=== PATIENT | male | born 2000 | race Caucasian/White ===

== ENCOUNTER 2020-05-09 19:36 | Emergency (ER) | payer MEDICAID ==
[~2020-05-09] VITALS: Ht 180.3 cm; Wt 150.0 kg
[~2020-05-09 19:36] MED LIST: HYDR-4383 PO; NO HOME MEDS
[2020-05-09] MEDS ORDERED: ibuprofen tablet 400 MG TABLET PO ONE (22:20)
[2020-05-09] MEDS ORDERED: oxyCODONE/APAP 5-325mg tablet PO ONE (22:20)
[2020-05-09] MEDS ORDERED: iohexol 350MG/ML 100ml bottle IV ONE (23:07)
[2020-05-09 23:26] LABS: BASOPHILS % (AUTO) 0.2 % (0-1); EOSINOPHILS % (AUTO) 0.1 % (0-6); HEMATOCRIT 43.5 % (42.0-52.0); HEMOGLOBIN 14.8 g/dl (14.0-17.9); LYMPHOCYTES # (AUTO) 1.7 X10'3 (1.1-4.8); LYMPHOCYTES % (AUTO) 9.6 % (21-51); MEAN CORPUSCULAR HEMOGLOBIN 31.7 PG (27.0-31.0); MEAN CORPUSCULAR HGB CONC 34.1 g/dL (33.0-36.5); MEAN CORPUSCULAR VOLUME 93.1 FL (78-98); MEAN PLATELET VOLUME 8.6 FL (7.4-10.4); MONOCYTES # (AUTO) 1.6 X10'3 (0-0.9); MONOCYTES % (AUTO) 9.1 % (2-12); NEUTROPHILS # (AUTO) 14.4 X10'3 (1.8-7.7); PLATELET COUNT 278 X10'3 (140-440); RED BLOOD COUNT 4.67 X10'6 (4.70-6.10); RED CELL DISTRIBUTION WIDTH 13.6 % (11.5-14.5); WHITE BLOOD COUNT 17.7 X10'3 (4.5-11.0)
[2020-05-09 23:49] LABS: CHLORIDE 103 MMOL/L (99-107); POTASSIUM 3.7 MMOL/L (3.5-5.1); SODIUM 141 MMOL/L (135-145)
[2020-05-10] MEDS ORDERED: OXYC-145 PO (00:29)
--- NOTE | 2020-05-10 00:45 | NUR ---
CSM INTACT LEFT LOWER LEG TOLERATES POSTION CHANGE AND UTILIZES ONE CRUTCH VERY WELL RIGHT ARM SLING FITTED PATIENT NEGATIVE FOR PALENESS OR PALLOR AND DECREASED PAIN ONCE PLACED IN SLING.
[2020-05-10 00:53] LABS: ALBUMIN 4.6 G/DL (3.4-5.0); ANION GAP 15 (8-16); BLOOD UREA NITROGEN 12 MG/DL (7-18); BUN/CREATININE RATIO 12.5 (5.4-32.0); CALCIUM 8.7 MG/DL (8.5-10.1); CREATININE 0.96 MG/DL (0.60-1.10); GLUCOSE 90 MG/DL (70-104); TOTAL CARBON DIOXIDE 23.4 MMOL/L (24-32); eGFR > 90 ML/MIN
[2020-05-10 01:19] VITALS: BP 111/78
== END 2020-05-10 01:05 | disposition home or self-care (01) ==
LOC: ER 19:36
DX: S42.001A Fracture of unspecified part of right clavicle, initial encounter for closed fracture (principal); S82.142A Displaced bicondylar fracture of left tibia, initial encounter for closed fracture; S80.212A Abrasion, left knee, initial encounter; S40.211A Abrasion of right shoulder, initial encounter; M25.511 Pain in right shoulder; F12.90 Cannabis use, unspecified, uncomplicated; Z90.89 Acquired absence of other organs; Z79.899 Other long term (current) drug therapy; X58.XXXA Exposure to other specified factors, initial encounter; Y93.89 Activity, other specified; Y92.89 Other specified places as the place of occurrence of the external cause; Y99.8 Other external cause status
CPT/HCPCS: 29505; 36415; 73000; 73030; 73564; 73706; 80048; 85025; 99285; Q9967